=== PATIENT | male | born 1975 | race Two or more races ===

== ENCOUNTER 2021-10-24 10:07 | Outpatient (REF) | payer SELFPAY ==
[2021-10-24 11:14] LABS: Anion Gap 12 (12-20); Blood Urea Nitrogen 20 mg/dL (9-16); Calcium 9.4 mg/dL (8.4-10.2); Carbon Dioxide 27 mmol/L (22-29); Chloride 107 mmol/L (96-108); Estimated Glomerular Filt Rate > 60; Glucose Fasting 93 mg/dL (60-99); Potassium 4.5 mmol/L (3.3-5.1); Sodium 141 mmol/L (135-145)
[2021-10-24 11:34] LABS: Rheumatoid Factor < 15.0 IU/mL (<15.0); Uric Acid 4.6 mg/dL (3.4-7.0)
[2021-10-24 11:44] LABS: Erythrocyte Sedimentation Rate 2 MM/HR (0-15)
[2021-10-25 08:14] LABS: Syphilis Screen Nonreactive (Nonreactive)
[2021-10-26 18:12] LABS: Lyme Abs Screen <0.90 index
[2021-10-30 16:37] LABS: HLA B27 Negative (Negative)
== END 2021-10-24 10:08 | disposition home or self-care (01) ==
LOC: HO.LAB 10:07
PROVIDERS: Visit Provider Psychiatry & Neurology Neurology
DX: M54.9 Dorsalgia, unspecified (principal)
CPT/HCPCS: 36415; 80048; 82550; 84550; 85652; 86431; 86617; 86618; 86780; 86812